=== PATIENT | female | born 1975 | race African-American/Black ===

== ENCOUNTER 2019-05-15 08:52 | Inpatient (IN) | payer SELFPAY ==
[~2019-05-15] VITALS: Ht 175.3 cm; Wt 76.7 kg
[2019-05-15 09:54] LABS: BASOPHILS % 1.3 % (0.0-2.0); EOSINOPHILS % 1.8 % (0.0-5.0); HEMATOCRIT. 33.8 % (36.0-48.0); HEMOGLOBIN. 10.6 g/dL (12.0-16.0); LYMPHOCYTES % 31.3 % (20.0-50.0); MEAN CORPUSCULAR HEMOGLOBIN 22.2 pg (28.0-32.0); MEAN CORPUSCULAR VOLUME 70.4 fL (81.0-99.0); MEAN PLATELET VOLUME 7.7 fl (7.4-10.4); MONOCYTES % 6.6 % (2.0-8.0); PLATELET 266 x1000/uL (130-400); RED CELL DISTRIBUTION WIDTH 16.8 % (11.6-14.6)
[2019-05-15 10:01] LABS: CHLORIDE 110 mEq/L (98-107)
[2019-05-15 10:22] LABS: HCG SCREEN NEGATIVE
[2019-05-15] MEDS ORDERED: NITROGLYCERIN OINT 1GM/INCH UDPKT TD ONE (10:30)
[2019-05-15] MEDS ORDERED: MORPHINE SULFATE 4 MG/ML CPJ (NOT FOR IM USE) IV ONE (10:30)
[2019-05-15] MEDS ORDERED: ONDANSETRON HCL 4MG/2ML INJ IV ONE (10:30)
[2019-05-15] MEDS: METOPROLOL TARTRATE 25MG TABLET PO SCH ×2 (12:30→21:00)
[2019-05-15 15:35] VITALS: BP 111/72
[2019-05-15] MEDS: ACETAMINOPHEN 325MG TABLET PO PRN (16:26)
[2019-05-15 17:40] VITALS: BP 111/72
[2019-05-15] MEDS ORDERED: DOCUSATE SODIUM 100MG CAPSULE PO PRN (18:15)
[2019-05-15] MEDS ORDERED: GUAIFENESIN 200MG/10ML SUGAR FREE UDC PO PRN (18:15)
[2019-05-15] MEDS ORDERED: ONDANSETRON HCL 4MG/2ML INJ IV PRN (18:15)
[2019-05-15] MEDS ORDERED: NA PHOS,M-B/NA PHOS,DI-BA ENEMA 118ML PR PRN (18:15)
[2019-05-15] MEDS ORDERED: MAGNESIUM/ALUMINUM HYDROXIDE/SIMETHICONE 30ML UDC PO PRN (18:15)
[2019-05-15] MEDS ORDERED: DIPHENHYDRAMINE 50MG/ML VIAL IV PRN (18:15)
[2019-05-15] MEDS ORDERED: IPRATROPIUM/ALBUTEROL 0.5-3(2.5)MG/3ML NEB INH PRN (18:15)
[2019-05-15] MEDS ORDERED: CLONIDINE 0.1MG TABLET PO PRN (18:15)
[2019-05-15] MEDS ORDERED: ACETAMINOPHEN 650MG SUPP PR PRN (18:15)
[2019-05-15 20:00] VITALS: BP 102/62
[2019-05-15] MEDS ORDERED: ENOXAPARIN 40MG/0.4ML SYR SUBCUT SCH (20:00)
[2019-05-15] MEDS ORDERED: ATORVASTATIN CALCIUM 10MG TABLET PO SCH (21:00)
[2019-05-15] MEDS: HYDROCODONE/ACETAMINOPHEN 5/325MG TABLET PO PRN (21:05)
[2019-05-15] MEDS: SODIUM CHLORIDE 0.9% INJ 3ML FLUSH IVF SCH (21:10)
[2019-05-16] VITALS: BP 109/71
[2019-05-16 00:49] LABS: CREATINE KINASE 242 IU/L (26-192)
[2019-05-16 00:50] LABS: CREATINE KINASE MB FRACTION 1.4 ng/mL (0.5-3.6)
[2019-05-16 04:00] VITALS: BP 111/58
[2019-05-16] MEDS: SODIUM CHLORIDE 0.9% INJ 3ML FLUSH IVF SCH ×2 (05:15→15:54)
[2019-05-16 06:54] LABS: CHLORIDE 109 mEq/L (98-107)
[2019-05-16 06:59] LABS: BASOPHILS % 0.7 % (0.0-2.0); EOSINOPHILS % 3.2 % (0.0-5.0); HEMATOCRIT. 32.1 % (36.0-48.0); HEMOGLOBIN. 10.1 g/dL (12.0-16.0); LYMPHOCYTES % 46.5 % (20.0-50.0); MEAN CORPUSCULAR HEMOGLOBIN 22.2 pg (28.0-32.0); MEAN CORPUSCULAR VOLUME 70.6 fL (81.0-99.0); MEAN PLATELET VOLUME 7.7 fl (7.4-10.4); MONOCYTES % 5.9 % (2.0-8.0); NEUTROPHILS % 43.7 % (40.0-76.0); PLATELET 239 x1000/uL (130-400); RED BLOOD CELL COUNT 4.55 mill/uL (4.2-5.4); RED CELL DISTRIBUTION WIDTH 16.9 % (11.6-14.6)
[2019-05-16 07:05] LABS: LDL CHOLESTEROL 76 mg/dL (5-100)
[2019-05-16 07:06] LABS: CREATINE KINASE 213 IU/L (26-192); CREATINE KINASE MB FRACTION 1.1 ng/mL (0.5-3.6); HDL CHOLESTEROL 46 mg/dL (40-59)
[2019-05-16 08:06] VITALS: BP 110/56
[2019-05-16] MEDS: METOPROLOL TARTRATE 25MG TABLET PO SCH (09:00)
[2019-05-16] MEDS ORDERED: ASPIRIN 81MG EC TABLET PO SCH (09:00)
[2019-05-16] MEDS: HYDROCODONE/ACETAMINOPHEN 5/325MG TABLET PO PRN (11:17)
[2019-05-16 12:00] VITALS: BP 110/65
[2019-05-16 14:32] VITALS: BP 110/65
[2019-05-16] MEDS: ACETAMINOPHEN 325MG TABLET PO PRN (15:49)
== END 2019-05-16 16:00 | disposition home or self-care (01) | DRG 203 ==
LOC: ER 11:20 → 7WST 11:44 → EDBEDREQ 12:00 → ENRESERV 12:33
PROVIDERS: ADMIT Family Medicine; ATTEND Family Medicine
DX: R07.89 Other chest pain (principal); D64.9 Anemia, unspecified; I10 Essential (primary) hypertension
CPT/HCPCS: 36415; 71045; 80061; 80076; 82248; 82550; 82553; 83880; 84484; 84703; 93005; 93306; 99285; J2270; J2405